=== PATIENT | female | born 1980 | race Caucasian/White ===

== ENCOUNTER 2016-08-31 19:27 | Emergency (ER) | payer OTHER ==
[~2016-08-31] VITALS: Ht 157.4 cm; Wt 50.8 kg
[~2016-08-31 19:27] MED LIST: ALBUTEROL0.09 MG/A2 IH; AMOXICILLIN500 MG PO; APHTHASOL5% MM; BIRTH CONTROL1 EAC1; CIPRO500 MG PO; CIPROFLOXACIN500 MG PO; CLARITIN10 MG PO; DIFLUCAN150 MG PO; IMODIUM A-D2 MG PO; KEFLEX500 MG PO; KLOR-CON 1010 MEQ PO; MACROBID100 M1 PO; MOTRIN800 MG PO; MYLICON, MYLANT80 MG PO; PERCOCET 325 MG1 TA2 PO; PERCOCET 325 MG1 TA7 PO; PHENERGAN25 M1 PO; PREDNICOT10 MG PO; PREDNISONE10 MG PO; PRENATAL1 TA1 PO; PRENATAL1 TA7 PO; PYRIDIUM200 MG PO; TRIMOX500 MG PO; TYLENOL650 M1 PO; VICODIN 5/500 505 MG PO; ZOFRAN ODT4 MG SL; Zofran4 MG PO; magic mouthwash PO
[2016-08-31] MEDS ORDERED: ATIVAN1 MG PO (20:10)
== END 2016-08-31 20:18 | disposition home or self-care (01) ==
LOC: ED 19:27
DX: F45.8 Other somatoform disorders (principal); Z98.890 Other specified postprocedural states; Z90.89 Acquired absence of other organs; Z88.5 Allergy status to narcotic agent; Z88.8 Allergy status to other drugs, medicaments and biological substances

== ENCOUNTER 2017-08-23 02:21 | Emergency (ER) | payer OTHER ==
[~2017-08-23] VITALS: Ht 157.4 cm; Wt 52.2 kg
[~2017-08-23 02:21] MED LIST changes: +ATIVAN1 MG PO
[2017-08-23] MEDS ORDERED: CLINDAMYCIN150 MG PO ×2 (02:31→03:02)
[2017-08-23] MEDS ORDERED: NAPROSYN500 MG PO ×2 (02:31→03:02)
== END 2017-08-23 03:10 | disposition home or self-care (01) ==
LOC: ED 02:21
DX: M27.3 Alveolitis of jaws (principal); Z88.6 Allergy status to analgesic agent; Z88.8 Allergy status to other drugs, medicaments and biological substances; Z90.89 Acquired absence of other organs

== ENCOUNTER 2019-07-31 16:39 | Emergency (ER) | payer OTHER ==
[~2019-07-31] VITALS: Ht 157.4 cm; Wt 56.7 kg
[~2019-07-31 16:39] MED LIST changes: +CLINDAMYCIN150 MG PO; +FLONASE ALLERG9.9 ML NAS; +MUCINEX1200 M1 PO; +NAPROSYN500 MG PO
== END 2019-07-31 18:13 | disposition home or self-care (01) ==
LOC: ED 16:39
DX: J10.1 Influenza due to other identified influenza virus with other respiratory manifestations (principal); M54.6 Pain in thoracic spine; F17.200 Nicotine dependence, unspecified, uncomplicated; Z88.5 Allergy status to narcotic agent; Z88.1 Allergy status to other antibiotic agents; Z79.2 Long term (current) use of antibiotics; Z79.899 Other long term (current) drug therapy

== ENCOUNTER → 2023-12-04 | Outpatient (CLI) | payer OTHER | END | disposition home or self-care (01) | LOC: MAMMO 01:16 | PROVIDERS: ATTEND Nurse Practitioner Women's Health | DX: Z12.31 Encounter for screening mammogram for malignant neoplasm of breast (principal); R92.333 Mammographic heterogeneous density, bilateral breasts; N63.11 Unspecified lump in the right breast, upper outer quadrant ==